=== PATIENT | male | born 1935 | race Caucasian/White ===

== ENCOUNTER 2017-10-14 19:14 | Emergency (ER) | payer OTHER ==
[~2017-10-14] VITALS: Ht 177.8 cm; Wt 100.0 kg
[2017-10-14] MEDS ORDERED: ONDANSETRON 2MG/ML, 2ML ONE (19:41)
[2017-10-14] MEDS ORDERED: morphine SULFATE 10 MG/ML, 1ML ONE (19:41)
[2017-10-14] MEDS ORDERED: APIX5TAB PO (19:58)
[2017-10-14] MEDS ORDERED: AMIO400T4 PO (19:58)
[2017-10-14] MEDS ORDERED: IRBE150T25 PO (19:58)
[2017-10-14] MEDS ORDERED: GLUCOSAMINE (19:58)
[2017-10-14] MEDS ORDERED: SODIUM CHLORIDE FLUSH 10ML SYR IVF ONE (20:00)
[2017-10-14] MEDS ORDERED: MORPHINE SULFATE 4 MG/ML, 1ML IVPush PRN (20:00)
[2017-10-14] MEDS ORDERED: ONDANSETRON 2MG/ML, 2ML IVPush ONE (20:00)
[2017-10-14] MEDS ORDERED: HYDROcodone/APAP 5/325 TABLET ONE (21:25)
[2017-10-14] MEDS ORDERED: HYDROcodone/APAP 5/325 TABLET PO ONE (22:00)
[2017-10-14 22:01] VITALS: BP 149/74
== END 2017-10-14 22:02 | disposition home or self-care (01) ==
LOC: ED 21:48
DX: S32.020A Wedge compression fracture of second lumbar vertebra, initial encounter for closed fracture (principal); I48.91 Unspecified atrial fibrillation; W01.0XXA Fall on same level from slipping, tripping and stumbling without subsequent striking against object, initial encounter; Y93.89 Activity, other specified; Y92.89 Other specified places as the place of occurrence of the external cause; Y99.8 Other external cause status
CPT/HCPCS: 72131; 96374; 96375; 99284; J2405